=== PATIENT | female | born 1960 ===

== ENCOUNTER → 2018-10-08 21:20 | Outpatient (REF) | payer BC, SELFPAY ==
[2018-10-09 02:19] LABS: Alanine Aminotransferase 32 IU/L (9-52); Albumin 4.4 g/dL (3.5-5.0); Albumin Globulin Ratio 1.5 (1.0-2.8); Alkaline Phosphatase 84 U/L (38-126); Aspartate Aminotransferase 25 IU/L (14-36); Bilirubin Total 0.3 mg/dL (0.2-1.3); Blood Urea Nitrogen 21 mg/dL (7-17); Calcium 9.2 mg/dL (8.4-10.2); Carbon Dioxide 28 mmol/L (22-32); Chloride 100 mmol/L (98-107); Estimated Glomerular Filt Rate > 60.0 mL/min (>60); Glucose 98 mg/dL (70-100); HEMOLYSIS < 15 (0-50); Potassium 4.4 mmol/L (3.4-5.1); Sodium 140 mmol/L (137-145); Total Protein 7.4 g/dL (6.3-8.2)
[2018-10-09 02:52] LABS: Ferritin 23.9 ng/mL (11.1-264)
[2018-10-09 03:01] LABS: Free T3, Triiodothyronine Free 3.86 pg/mL (2.77-5.27); Free T4, Direct Thyroxine 0.82 ng/dL (0.78-2.19)
[2018-10-09 03:15] LABS: Thyroid Stimulating Hormone 0.96 uIU/mL (0.47-4.68)
[2018-10-10 14:57] LABS: Dehydroepiandrosterone Sulfate 95 mcg/dL (8-188)
[2018-10-10 17:02] LABS: Progesterone 3.6 ng/mL
[2018-10-10 17:36] LABS: Sex Hormone Binding Globulin 47 nmol/L (14-73)
[2018-10-11 18:18] LABS: Estrogen 335.9 pg/mL
[2018-10-15 18:13] LABS: Testosterone Free 0.1 pg/mL (0.1-6.4); Testosterone Total 1 ng/dL (2-45)
== END ==
LOC: LAB 21:20
PROVIDERS: Visit Provider Naturopath
DX: K76.89 Other specified diseases of liver (principal); R63.5 Abnormal weight gain; N95.8 Other specified menopausal and perimenopausal disorders; Z79.890 Hormone replacement therapy; E03.9 Hypothyroidism, unspecified
CPT/HCPCS: 80053; 82627; 82672; 82728; 84144; 84270; 84402; 84403; 84439; 84443; 84481